=== PATIENT | male | born 1950 | race Caucasian/White ===

== ENCOUNTER → 2018-05-16 | Outpatient (CLI) | payer MEDICARE ==
[~2018-05-16] MED LIST: RANI150T2 PO
--- NOTE | 2018-05-16 11:09 | KCIC ---
EXAM: Lumbar spine, 5 views. HISTORY: Pain. COMPARISON: None. FINDINGS: Frontal, lateral, bilateral oblique and coned sacral views of the lumbar spine are obtained. There is there is no listhesis. The vertebral bodies are normal in height and the disc spaces are preserved. There is endplate remodeling at all levels. There is facet arthropathy predominantly at the lower lumbar levels. There are postoperative changes within the left upper quadrant and ventral abdominal wall. IMPRESSION: 1. Mild multilevel degenerative change. 2. No acute osseous finding Electronically signed by: Alexandrea Ko MD (05/16/2018 11:05 AM) [facility]
== END | disposition home or self-care (01) ==
LOC: KCIC 09:56
PROVIDERS: ATTEND Family Medicine
DX: M47.26 Other spondylosis with radiculopathy, lumbar region (principal); M12.88 Other specific arthropathies, not elsewhere classified, other specified site; Z98.890 Other specified postprocedural states
CPT/HCPCS: 72110

== ENCOUNTER → 2019-11-12 | Outpatient (CLI) | payer MEDICARE ==
--- NOTE | 2019-11-12 17:53 | CARD ---
MR#: [id number] Date of Study: 11/12/2019 Ordering Physician: JANEL BOSCH, Referring Physician: JANEL BOSCH, Tech: Izzy Briones APPROVED REPORT EXAM: Two-dimensional and M-mode echocardiogram with Doppler and color Doppler. Other Information HR: 51bpm INDICATION Bradycardia 2D DIMENSIONS RVDd3.9 (2.9-3.5cm)Left Atrium(2D)4.0 (1.6-4.0cm) IVSd1.2 (0.7-1.1cm)Aortic Root(2D)3.1 (2.0-3.7cm) LVDd5.1 (3.9-5.9cm)LVOT Diameter2.0 (1.8-2.4cm) PWd1.2 (0.7-1.1cm)LVDs2.6 (2.5-4.0cm) FS (%) 48.7 %SV98.4 ml LVEF(%)59.9 (>50%) Aortic Valve AoV Peak Alex.117.0cm/sAoV VTI26.7cm AO Peak GR.5.5mmHgLVOT Peak Alex.78.5cm/s LVOT VTI 19.22cmAO Mean GR.3mmHg SÁNCHEZ (VMAX)1.86bf2CLL (VTI)2.28cm2 Mitral Valve MV E Lijxppqy73.3cm/sMV DECEL LTCJ361va MV A Mqpcetpg31.3cm/sMV [id number] E/A Ratio0.9MVA (PHT)2.10cm2 TDI E/Lateral E'4.7E/Medial E'5.8 Pulmonary Valve PV Peak Dithscdv83.0cm/sPV Peak Grad.4mmHg Tricuspid Valve TR P. Qtuliyif519oq/sRAP ZKMYBOEN1zcFg TR Peak Gr.20fbLlLZYL62noFc Pulmonary Vein S1 Baepokcw23.4cm/sD2 Tajtvxlt05.7cm/s PVa [id number] LEFT VENTRICLE The left ventricle is normal size. There is borderline to mild concentric left ventricular hypertroph y. The left ventricular systolic function is low normal. The Ejection Fraction is 50%. There is champ l LV segmental wall motion. Transmitral Doppler flow pattern is Grade I-abnormal relaxation pattern. RIGHT VENTRICLE The right ventricle is normal size. There is normal right ventricular wall thickness. The right ventr icular systolic function is normal. ATRIA The left atrium size is normal. The right atrium size is normal. The interatrial septum is intact wit h no evidence for an atrial septal defect or patent foramen ovale as noted on 2-D or Doppler imaging. AORTIC VALVE The aortic valve is normal in structure and function. Doppler and Color Flow revealed no significant aortic regurgitation. There is no significant aortic valvular stenosis. Calculated aortic valve area is 2.1 cm2 with maximum pressure gradient of 6 mmHg and mean pressure gradient of 3 mmHg. MITRAL VALVE The mitral valve is normal in structure and function. There is no evidence of mitral valve prolapse. There is no mitral valve stenosis. Doppler and Color-flow revealed trace mitral regurgitation. TRICUSPID VALVE The tricuspid valve is normal in structure and function. Doppler and Color Flow revealed trace tricus pid regurgitation with an estimated PAP of 29 mmHg. There is no tricuspid valve stenosis. PULMONIC VALVE The pulmonic valve is not well visualized. Doppler and Color Flow revealed no pulmonic valvular regur gitation. GREAT VESSELS The aortic root is normal in size. The IVC was not visualized. PERICARDIAL EFFUSION There is no evidence of significant pericardial effusion. Critical Notification Critical Value: No <Conclusion> The left ventricular systolic function is low normal. The Ejection Fraction is 50%. There is normal LV segmental wall motion. Signed by : Janel Bosch, Electronically Approved : 11/12/2019 17:52:38
== END | disposition home or self-care (01) ==
LOC: ECHO 09:15
PROVIDERS: ATTEND Internal Medicine Cardiovascular Disease
DX: I51.7 Cardiomegaly (principal)
CPT/HCPCS: 93306